=== PATIENT | female | born 1985 | race Caucasian/White ===

== ENCOUNTER 2021-01-25 12:00 | Emergency (ER) | payer MEDICARE, MEDICAID, SELFPAY ==
--- NOTE | ~2021-01-25 | US_ITS ---
EXAMINATION: BILATERAL TRIPLEX SCANNING OF THE LOWER EXTREMITIES CLINICAL INFORMATION: Lower extremity swelling. COMPARISON: None. TECHNIQUE: Color-flow triplex imaging with spectral analysis and compression Doppler were performed on the lower extremities. FINDINGS: Respiratory variation, normal compression and augmented flow are noted throughout the lower extremities. The visualized common femoral vein, superficial femoral vein, profunda femoral vein, popliteal vein and mid calf peroneal and posterior tibial venous segments show no evidence of deep venous thrombosis. There is no Tracy's cyst. US/US venous duplex LE BI IMPRESSION: Normal triplex scan without evidence of deep venous thrombosis involving the lower extremities.
[2021-01-25 12:09] VITALS: BP 125/90; PULSE 104; RESP 18; O2SAT 98; BMI 39.3
--- NOTE | 2021-01-25 13:18 | ED.LOWEXIN ---
HPI - Extremity Injury (Lower) General Chief Complaint: Extremity Injury, Lower Stated Complaint: leg pain Time Seen by Provider: 01/25/21 12:41 Source: patient Mode of arrival: ambulatory Limitations: no limitations History of Present Illness HPI Narrative: 35-year-old healthy female who presents to the emergency department with atraumatic right leg pain. States 2-3 days ago she developed right posterior calf tenderness that seems to be radiating up the leg also admits to some mild numbness tingling again is adamant about no injuries or trauma. Due to concern she felt she needed to be seen. Of note no recent travel Related Data Previous Rx's Medication Instructions Recorded cyclobenzaprine 10 mg PO TID PRN #15 tab 01/25/21 Allergies Allergy/AdvReac Type Severity Reaction Status Date / Time No Known Allergies Allergy Verified 01/25/21 12:09 [No Known Allergies*] Review of Systems Review of Systems: Constitutional : No Weight loss, No Fever, No Chills, No Night Sweats, No Fatigue, No Malaise ENT/Mouth : No Hearing loss, No Ear Pain, No Nasal Congestion, No Sinus Pain, No Hoarseness, No sore throat, No Rhinorrhea, No Swallowing Difficulty Eyes: No Eye Pain, No Swelling, No Redness, No Foreign Body, No Discharge, No Vision Changes Cardiovascular : No Chest Pain, No SOB, No Dyspnea on Exertion, No Orthopnea, No Edema, No Palpitations Respiratory : No Cough, No Sputum, No Wheezing, No Smoke Exposure, No Dyspnea Gastrointestinal : No Nausea, No Vomiting, No Diarrhea, No Constipation, No abdominal Pain, No Hematochezia, No Melena Genitourinary : no irregular bleeding, No Dysuria, No Urinary Frequency, No Hematuria, No Urinary Incontinence, No Urgency, No Flank Pain, No Urinary Flow Changes, No Hesitancy Musculoskeletal : No joint pain, No Myalgias, No Joint Swelling. + leg pain, + leg swelling Skin : No Skin Lesions, No rash Neuro : No Weakness, + Numbness, No Paresthesias, No Loss of Consciousness, No Dizziness, No Headache Psych : No Anxiety/Panic, No Depression, No SI/HI/AH/VH, No Social Issues, Heme/Lymph: No Bruising, No Bleeding,No Lymphadenopathy Endocrine : No Polyuria, No Polydipsia, No Temperature Intolerance [facility] Past Medical History Attestation statement: The following information was validated with the patient. Source: old records reviewed and obtained from family Medical History (Updated 01/25/21 @ 16:29 by AWILDA Champion) Anxiety Asthma Depression Left breast mass Social History Social History Advance Directives: No Advance Directives Information Provided: Yes Patient : No Physical Exam Vital Signs: Vital Signs: Last Vital Signs Temp 97.0 F 01/25/21 14:32 Pulse 100 01/25/21 14:32 Resp 16 01/25/21 14:32 BP 121/79 01/25/21 14:32 Pulse Ox 97 01/25/21 14:32 Body Mass Index 39.3 vital signs have been reviewed as normal and appeared to be correct. Blood pressure normal. Heart rate normal. Respiration rate normal. Temperature normal. Oxygen saturation normal. Appearance: Alert. Oriented X3. No acute distress. Head: Normal external exam. Normocephalic. Atraumatic. No Jackson signs noted. No raccoon eyes noted Eyes: Conjunctiva and sclera normal. ENT: EAC normal. Moist mucous membranes. No drooling noted. No muffled voice noted. Neck: Normal inspection. Neck supple. FROM. No meningeal signs. CVS: Pulses normal throughout. Respiratory: No respiratory distress. Painless inspiration. No accessory muscle usage noted Abdomen: No visible injury noted. Back: Full range of motion noted. Skin: Skin warm and dry. Normal skin color. Extremities: No lower extremity edema. Extremities exhibit normal range of motion. Patient with pain to palpation of posterior calf and posterior thigh. Patient does have objective edema to the right lower extremity compared to the left lower extremity good distal pulses good cap refill. Sensation is intact. Neuro: Oriented X 3. No motor deficit. No sensory deficit. Course Course Course Narrative: Patient's ultrasound without evidence of DVT continues to have symptoms. Given the absence of bilateral nature low suspicion for GBS. The absence of trauma with full range of motion of all joints lower/suspicion for bony abnormalities again do not feel x-rays are warranted. At this time patient is otherwise neurovascularly intact without any motor deficits low suspicion for stroke will discharge home at this time with muscle relaxer and close outpatient follow-up feel this is likely secondary to a peripheral neuropathy. MDM - Extremity Injury (Lower) MDM Narrative Medical decision making narrative: Patient's vital signs are stable and she is afebrile patient presenting to the ED with atraumatic right lower extremity pain swelling numbness concern for DVT does exist will obtain right lower extremity ultrasound looking for evidence of such. Continue to monitor reassess pending the above full range of motion of all joints in the absence of trauma is low risk for fracture will continue to monitor Discharge Plan Discharge Clinical Impression: Acute leg pain Qualifiers: Laterality: right Qualified Code(s): M79.604 - Pain in right leg Patient Disposition: Home, Self-Care Instructions: Paresthesia (ED), Leg Pain (ED) Additional Instructions: You were seen in the ED today for right lower extremity pain numbness tingling and ultrasound was performed without evidence of a blood clot. There was not concern for bony injury at this time your symptoms most concerning for a peripheral neuropathy or paresthesia that should improve over time on its own. You will be prescribed a muscle relaxer to help with potential inflammation. Continue to use Motrin Tylenol home return if symptoms worsen follow-up with your doctor. Prescriptions: New cyclobenzaprine 10 mg tablet 10 mg PO TID PRN (Reason: muscle spasm) Qty: 15 RF: 0 Interventions: ED Discharge Assessment Last Done: 01/25/21 16:37 Discharge Date/Time: 01/25/21 16:38 Print Language: Albanian
[2021-01-25 14:32] VITALS: BP 121/79; PULSE 100; RESP 16; TEMP 36.1; O2SAT 97
== END 2021-01-25 16:38 | disposition home or self-care (01) ==
PROVIDERS: Emergency Provider Emergency Medicine Emergency Medical Services; PCP Internal Medicine
DX: M79.604 Pain in right leg (principal); R60.0 Localized edema; R20.0 Anesthesia of skin
CPT/HCPCS: 93970; 99284

== ENCOUNTER 2025-06-10 12:33 | Outpatient (REF) | payer OTHER, SELFPAY ==
--- NOTE | 2025-06-10 | ECG_ITS ---
Test Reason : CHECK QTC Blood Pressure : */* mmHG Vent. Rate : 77 BPM Atrial Rate : 77 BPM P-R Int : 112 ms QRS Dur : 82 ms QT Int : 380 ms P-R-T Axes : 48 55 37 degrees QTcB Int : 430 ms Normal sinus rhythm Normal ECG When compared with ECG of 18-Oct-2017 12:49, No significant change was found Referred By: Livia Rodríguez Electronically Signed By: NEVA MARQUES
[2025-06-10 12:55] LABS: MANUAL DIFF FLAG NO
[2025-06-10 14:03] LABS: Hematocrit 41.9 % (37.0-47.0); Hemoglobin 13.9 g/dl (12.0-16.0); Imm Gran Abs Auto 0.01 X10*3/uL (0.00-0.03); Imm Gran Pct Auto 0.2 % (0.0-0.4); Lymphocytes Absolute Auto 1.4 X10*3/uL (1.2-4.9); Mean Corpuscular HGB Conc 33.2 g/dl (31.0-35.0); Mean Corpuscular Hemoglobin 30.2 pg (27.0-33.0); Mean Corpuscular Volume 91.1 fL (80.0-98.0); NRBC Abs Auto 0.000 X10*3/uL (0.0-0.012); NRBC Pct Auto 0.0 /100WBC (0.0-0.2); Platelet Count 243 X10*3/uL (160-400); Red Blood Count 4.60 X10*6/uL (4.20-5.50); White Blood Count 5.2 X10*3/uL (4.8-10.8)
[2025-06-10 14:40] LABS: Erythrocyte Sedimentation Rate 8 MM/HR (0-20)
[2025-06-10 17:39] LABS: Parathyroid Hormone Intact 89.3 pg/mL (8.7-77.1)
[2025-06-10 18:50] LABS: Alanine Aminotransferase 30 U/L (0-31); Albumin Level 4.3 g/dL (3.5-5.0); Alkaline Phosphatase 90 U/L (39-117); Anion Gap 11 (12-20); Aspartate Amino Transferase 23 U/L (5-31); Blood Urea Nitrogen 12 mg/dL (9-16); Calcium 9.4 mg/dL (8.4-10.2); Carbon Dioxide 25 mmol/L (22-29); Chloride 107 mmol/L (96-108); Estimated Glomerular Filt Rate > 60; Iron 91 mcg/dL (30-160); Percent Iron Saturation 31 % (15-50); Potassium 4.0 mmol/L (3.3-5.1); Sodium 139 mmol/L (135-145); Total Iron Binding Capacity 295 mcg/dL (228-428); Total Protein 6.9 g/dL (6.5-8.0); Unsaturated Iron Binding 204 ug/dL
[2025-06-10 18:51] LABS: Free T4 (Free Thyroxine) 0.87 ng/dL (0.71-1.85); Thyroid Stimulating Hormone 1.21 uIU/mL (0.32-4.0)
[2025-06-11 00:31] LABS: Folate 9.6 ng/mL (> or = 4.0); Vitamin B12 1741 pg/mL (200-900)
[2025-06-11 08:20] LABS: HBS Num1 26.74 mIU/mL (0-7.99); HBc Num1 0.06 S/CO (0.00-0.79); HBsAGNum1 0.37 S/CO (0.00-0.99); Hepatitis B Surface Antigen Negative (Negative); ~HepC Num1 0.08 S/CO (0.00-0.79); ~Hepatitis B Surface Antibody REACTIVE (Nonreactive); ~Hepatitis C Antibody Nonreactive (Nonreactive)
== END 2025-06-10 12:34 | disposition home or self-care (01) ==
LOC: HO.LAB 12:33
PROVIDERS: PCP Internal Medicine; Visit Provider Psychiatry & Neurology Psychiatry
DX: Z13.6 Encounter for screening for cardiovascular disorders (principal); Z13.1 Encounter for screening for diabetes mellitus; Z11.59 Encounter for screening for other viral diseases; F39 Unspecified mood [affective] disorder; K76.89 Other specified diseases of liver; R41.89 Other symptoms and signs involving cognitive functions and awareness
CPT/HCPCS: 80053; 82607; 82746; 83036; 83540; 83970; 84100; 84439; 84443; 85025; 85652; 86803; 87086; 93005

== ENCOUNTER → 2025-06-10 13:10 | Outpatient (BNV) | payer OTHER, SELFPAY | PROVIDERS: PCP Internal Medicine; Visit Provider Internal Medicine | DX: Z13.6 Encounter for screening for cardiovascular disorders (principal) | CPT/HCPCS: 93010 ==

== ENCOUNTER 2025-07-01 09:15 | Outpatient (RCR) | payer OTHER, SELFPAY ==
[2025-06-09 09:34] VITALS: BMI 37.4
[2025-06-09 09:35] VITALS: BP 96/65; PULSE 100; TEMP 36.4
--- NOTE | 2025-06-09 15:21 | HO.PHP ---
Macrina's case was opened during weekly team treatment meeting.
--- NOTE | 2025-06-09 15:27 | PC.ADMIT ---
Patient is a 40 year old single female who was referred to [facility] by her therapist secondary to worsening depression for the past month. Patient unable to identify a precipitant however stated she's experiencing, a little stress with my son as he does not know what he is going to do with his life either go to school or get a job. Patient has a history of attending [facility] in the past. Patient also struggling with dissociation and isolation, along with self harm by cutting superficially her legs, last self harmed two days ago. Patient denied the areas needing stitches. Asked what patient could do instead of self harm when feeling strong emotions and patient stated use ice or distraction. Patient reports she is unemployed and reports having no day structure. Patient is alert and oriented x4. She is calm and cooperative. She presented with depressed mood and blunted affect. When asked if patient was experiencing SI patient stated, It's pretty bad. Just feels almost constant. I know what I would do but I wouldn't plan on doing it . Patient denied intent to kill herself. Patient stated she is at [facility] to learn better coping skills to help with her thoughts. Patient reports her protective factor is her 19 year old son who lives with her. Patient was given a copy of her safety plan if needed. Patient denied any history of using any substance. Medications updated with patient and patient's pharmacy. She reports taking medications as prescribed.
--- NOTE | 2025-06-10 15:48 | P.HPPSP_ITS ---
[facility] Date of Service: 06/09/25 Chief Complaint: PTSD Sources of Information: patient interviewed, chart reviewed and crisis/core team assessment reviewed Additional Sources of Information: [facility] Narrative: As per Initial Assessment: Macrina is a 40 year old, female, referred to [facility] by her therapist Betsy Nichole due to increasing symptoms of depression in the past month, states she is ?Not sure why.? Reports ? constant suicidal thoughts,? and reports she has also started cutting again, using scissors on legs and stomach, denies cutting deeply , does not require stitches, reports her therapist is aware. When asked how often pt stated ?it? s random?. Macrina was quiet during the intake, requiring continuous prompting with questions to gather info, difficult recollecting information, slow to respond /process. Macrina reports depression symptoms of dissociating, difficulty remembering, isolating more, inconsistent sleep from 3 to 15 hours of sleep a day, difficulty falling asleep and waking very early some days eg . 4am, low mood, sad, crying several days a week, low energy, poor concentration, on her phone a lot more, using it to avoid/ escape, feeling hopeless, low self-worth, fatigue. Pt also reports increased anxiety and an OCD diagnosis, for checking locks and knobs , ?paranoid? fears that her apartment will be broken into. (No history of break- ins). Pt also reports Panic attacks a few times a week, reports this has been a long time struggle, began around age 13 with recent increase in occurrence the past month. Macrina reports suicidal thoughts daily, states they occur randomly and ranging from thoughts such as I hope I don't wake up to thoughts with a plan to overdose on medications or to go to the train tracks. Pt denies intent. Stated she does not want to act on the thoughts, which is why she has come to [facility]. Denies feeling an increase in SI today, identified passive SI today, currently no plan and no intent during intake but states the plan ?pops into my mind randomly?. Pt agreed to report to staff or contact crisis if her SI increases. During intake, ot and senior underwriter identified some coping tools that can help with SI and SIB when not at [facility]. Patient seen today. Overall poor historian and appears sleepy, flat, slowed, and needing redirection to attend to conversation. Reviews psychiatric history and ongoing issues with chronic depression and severe PTSD. For the past month is has gotten worse . Reports cognitive decline, fatigue, poor focus, no energy or motivation, feels detached...it's hard to think . Isolating at home. SI that comes and goes but has been more persistent and occurring almost everyday for the past month. Some days I hope I dont wake up, I'm not quite there today, but generally feel like that . No concrete plans or intention to take action or harm herself. Denies AI or HI. Denies AH or VH. Denies any alcohol or drug use. Lives at home in apartment with 19 yo son, [facility] housing. Established outpatient care at [facility]. Limited primary supports in the community but says she has a good family and a sister she can rely on. Current medications? Clomipramine 200 mg qhs Prazosinbut Ambien 10 mg qhs? Lorazepam 1.5 mg qhs IPLOC:? x 6 PHP in the past Respite in 2023 SA in the past, last time was 2016 by overdose DBT in past was helpful Developmental hx: Youngest of 6 children, denies any known developmental delays, but describes long standing issues consistent with attention-deficit disorder stemming from childhood. No prior diagnosis of ADHD or LD but did poorly academically in school, particularly struggled in MS and HS. Her son carries diagnosis of ADHD from childhood. Psychiatrist: Chel Montilla at [facility] Therapist: Betsy Nichole at [facility] PCP: Nicole Kent at [facility] worker Previous trials: unable to recall but recognized possible trials of Prozac, ZOloft, Celexa, Wellbutrin, Klonopin, Lamictal, gabapentin, Abilify, Seroquel, Proazosin, Ativan, trazodone ECT (not helpful), TMS 2 rounds, somewhat helpful a few yrs ago) and Esketamine treatment (in 2023, somewhat helpful) in the past FH: Father with alcoholism, son with ADHD, bio brother with anxiety, depression, alcoholism [facility] Medical History (Updated 08/08/25 @ 02:59 by Livia Rodríguez MD) Constipation GERD (gastroesophageal reflux disease) Fatty liver Concussion Left breast mass Asthma Anxiety Depression Narrative: pre-eclampsia in Denies seizures Concussion x1 early 20s, intoxicated 2005 LMP: 2 weeks ago Ht: 5'2 Wt: 200 lbs ALL: NKDA Diagnostics Vital Signs (24Hr): BMI result Body Mass Index 37.4 Meds/Allergies Meds Home Medications ?Medication ?Instructions ?Recorded ?Confirmed ?Type acetylcysteine 600 mg capsule 600 mg PO BID 06/09/25 1 08/10/24 History albuterol sulfate 90 mcg/actuation 2 puff inhalation Q 6H PRN wheezing 06/09/25 06/09/25 History aerosol inhaler (Ventolin HFA) cholecalciferol (vitamin D3) 125 125 mcg PO QAM 06/09/25 History mcg (5,000 unit) tablet (Vitamin D3) clomipramine 50 mg capsule 200 mg PO BEDTIME 06/09/25 06/09/25 History fluticasone propionate 110 1 puff inhalation BID 06/0906/09/25 History mcg/actuation HFA aerosol inhaler omeprazole 20 mg capsule,delayed 20 mg PO QAM 06/09/25 06/09/25 History release polyethylene glycol 3350 17 17 g PO ONCE PRN constipat ion 06/09/25 06/09/25 History gram/dose oral powder (Gavilax) prazosin 5 mg capsule 10 mg PO BEDTIME 06/09/25 History zolpidem 10 mg tablet 10 mg PO BEDTIME 06/09/25 History Allergies Allergies Allergy/AdvReac Type Severity Reaction Status Date / Time No Known Allergies (No Known Allergy Verified 01/25/21 12:09 Allergies*) Mental Status Exam Mental Status Exam Patient Appearance: Disheveled Patient Orientation: Person, Place and Situation Level of Consciousness: Awake and Lethargic Patient Behavior: Guarded, Passive and Poor Eye Contact Mood Description: Depressed Affect Description: Flat Patient Cognition Impaired: Yes Ability to Follow Directions: Fair Speech Pattern: Impoverished, Soft-Spoken and Delayed Memory Description: Remote Impaired and Recent Impaired Hallucinations: None Delusions: Not Present Perceptual Disturbances: Depersonalization Thought Process: Distracted Thought Content: positive for Poverty of Content, positive for Slowed Thinking and positive for Suicidal Ideation (passive without plan or ideation) Judgement: Fair Assessment & Plan Assessment & Plan (1) MDD (major depressive disorder), recurrent severe, without psychosis: Status: Acute Code(s): F33.2 - Major depressive disorder, recurrent severe without psychotic features (2) ADD (attention deficit disorder) without hyperactivity: Status: Acute Code(s): F98.8 - Other specified behavioral and emotional disorders with onset usually occurring in childhood and adolescence (3) PTSD (post-traumatic stress disorder): Status: Acute Code(s): F43.10 - Post-traumatic stress disorder, unspecified (4) OCD (obsessive compulsive disorder): Status: Acute Code(s): F42.9 - Obsessive-compulsive disorder, unspecified Plan Admit to [facility] VS reviewed on admission start lithium 150 mg qd-BID for TRD/chronic SI (will only given short rx at a time) start NAC 600 mg qd for OCD continue regular medications for now Routine lab work as indicated EKG, routine for baseline QTc for medication considerations as indicated UDS as indicated [facility] reviewed Review safety plan Continue to monitor as per protocol Patient educated on: diagnosis, medication risk/benefits, TMS and medical condition Informed Consent: understands Reason for continued partial hosp. stay Substantial Risk for: inability to function and med/psych decompensation Certification I certify that partial hospital treatment is medically necessary due to the symptoms and problems resulting from the patient's mental illness and the failure to treat the patient at the partial hospital level of care would likely result in the patient requiring inpatient psychiatric care which could not be prevented at a less intensive level of care. Time Spent With Patient Time: Total time managing care of this patient today _90___ minutes.
--- NOTE | 2025-06-15 18:53 | P.PNPSP_ITS ---
Subjective Subjective Date of Service: 06/13/25 Reason For Visit: PTSD Interim History: Patient seen for follow up No significant change in presentation - still depressed, flat, despondent. Poor attention, fatigue, slow cogitive tempo. TRD w possible neurovegetative sx superimposed on presumed ADD and possible character pathology She is tolerating lithium without issue. Onogin passive SI without intention or plan. Denies HI, AH, VH. Sleeping but feels unrested, no energy. Lab results reviewed Stimulant requiring a PA Mental Status Exam Mental Status Exam Patient Appearance: Disheveled Patient Orientation: Person, Place and Situation Level of Consciousness: Awake and Lethargic Patient Behavior: Guarded, Passive and Poor Eye Contact Mood Description: Depressed Affect Description: Flat Patient Cognition Impaired: Yes Ability to Follow Directions: Fair Speech Pattern: Impoverished, Soft-Spoken and Delayed Memory Description: Remote Impaired and Recent Impaired Diagnostics Vital Signs (24Hr): BMI result Body Mass Index 37.4 Assessment & Plan Assessment & Plan (1) MDD (major depressive disorder), recurrent severe, without psychosis: Status: Acute Code(s): F33.2 - Major depressive disorder, recurrent severe without psychotic features (2) ADD (attention deficit disorder) without hyperactivity: Status: Acute Code(s): F98.8 - Other specified behavioral and emotional disorders with onset usually occurring in childhood and adolescence (3) PTSD (post-traumatic stress disorder): Status: Acute Code(s): F43.10 - Post-traumatic stress disorder, unspecified (4) OCD (obsessive compulsive disorder): Status: Acute Code(s): F42.9 - Obsessive-compulsive disorder, unspecified Plan continue PHP continue lithium 150 mg BID for TRD/chronic SI (will only given short rx at a time) continue NAC 600 mg qd for OCD continue clomipramine 200 mg qhs continue prazosin 10 mg qhs continue Ambien 10 mg qhs prn Routine lab work reviewed VS reviewed on admission Review safety plan Discussed TMS, patient says she will consider but not motivated twd this trtmt Continue to monitor Patient educated on: diagnosis and medication risk/benefits Informed Consent: understands Reason for contiued partial hosp. stay Substantial Risk for: inability to function and med/psych decompensation Certification I certify that partial hospital treatment is medically necessary due to the symptoms and problems resulting from the patient's mental illness and the failure to treat the patient at the partial hospital level of care would likely result in the patient requiring inpatient psychiatric care which could not be prevented at a less intensive level of care. Total time managing care of this patient today _30___ minutes. Discharge Plan Discharge Attending provider: Livia Rodríguez Medications: Continued zolpidem 10 mg tablet 10 mg PO BEDTIME prazosin 5 mg capsule 10 mg PO BEDTIME Rx Instructions: Take 2 capsule by mouth at bedtime (10 mg) omeprazole 20 mg capsule,delayed release(DR/EC) 20 mg PO QAM clomipramine 50 mg capsule 200 mg PO BEDTIME Rx Instructions: TAKE 4 CAPSULE BY MOUTH AT BEDTIME polyethylene glycol 3350 [Gavilax] 17 gram/dose powder 17 g PO ONCE PRN (Reason: constipation) albuterol sulfate [Ventolin HFA] 90 mcg/actuation HFA aerosol inhaler 2 puff INHALATION Q6H PRN (Reason: wheezing) fluticasone propionate 110 mcg/actuation HFA aerosol inhaler 1 puff INHALATION BID acetylcysteine 600 mg capsule 600 mg PO BID Rx Instructions: TAKE 1 CAPSULE BY MOUTH TWICE A DAY WITH MEALS cholecalciferol (vitamin D3) [Vitamin D3] 125 mcg (5,000 unit) tablet 125 mcg PO QAM lithium carbonate 150 mg capsule 150 mg PO BID Qty: 30 0RF Changed lorazepam [Ativan] 1 mg tablet 1.5 mg PO BEDTIME PRN (Reason: Sleep) Qty: 10 0RF Patient Comments: Today's date 06/09/25. Patient stated she has been out of this medication for a week and does not know why it was not refilled. Rx Instructions: Last filled 04/08/25 # 45 tabs. aripiprazole 5 mg tablet 7.5 mg PO BEDTIME Qty: 45 0RF aripiprazole 2 mg tablet 2 mg PO DAILY Qty: 30 0RF Patient Education: Depression (DC), Anxiety (ED) Print Language: Japanese
--- NOTE | 2025-06-27 23:22 | HO.PHPPROGNO ---
Subjective Subjective Date of Service: 06/24/25 Reason For Visit: PTSD Interim History: Patient seen for follow-up. Since last seen on 06/13Patient delayed picking up medications from pharmacy. Just restarted back on lithium 2 days ago and is now 3 days on ABilify 3 mg. Less hypersomnia. She feels she is sleeping better, less hours but better quality. SI a little less . No intention o rplan. Feels there has been some gradual improvements in mood. Still presents with poor memory and attention, but less flat, moments of brightening but overall still quite blunted. 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 I suggest she could use GoodRx to trial (about $14 for month) and if tolerated/beneficial may have better luck getting approval through insurance. Medication Compliance: Intermittent Side effects from medications: No Attending Groups: Yes Review of Systems Acute medical concerns: No Mental Status Exam Mental Status Exam Narrative: Calm, more cooperative, fatigue but alert. Mood depressed, affect blunted. Speech normal. No evidence of thought disorder. Thought content relevant to stressors, transient hopelessness, vague passive SI abating. Denies perceptual disturbance and does not appear to be internally preoccupied. Insight/judgment fair but adequate. Diagnostics Vital Signs (24Hr): BMI result Body Mass Index 37.4 Assessment & Plan Assessment & Plan (1) MDD (major depressive disorder), recurrent severe, without psychosis: Status: Acute Code(s): F33.2 - Major depressive disorder, recurrent severe without psychotic features (2) ADD (attention deficit disorder) without hyperactivity: Status: Acute Code(s): F98.8 - Other specified behavioral and emotional disorders with onset usually occurring in childhood and adolescence (3) PTSD (post-traumatic stress disorder): Status: Acute Code(s): F43.10 - Post-traumatic stress disorder, unspecified (4) OCD (obsessive compulsive disorder): Status: Acute Code(s): F42.9 - Obsessive-compulsive disorder, unspecified Plan extend PHP titrate ABilify to 5 mg, if tolerated may consider increase to 7.5 mg qhs pending start on [facility] 5 mg qam continue lithium 150 mg BID for TRD/chronic SI continue clomipramine 200 mg qhs continue prazosin 10 mg qhs continue Ambien 10 mg qhs prn continue NAC 600 mg qd for OCD Routine lab work reviewed VS reviewed on admission Review safety plan Continue to monitor Patient educated on: diagnosis and medication risk/benefits Informed Consent: understands Reason for contiued partial hosp. stay Substantial Risk for: med/psych decompensation Certification I certify that partial hospital treatment is medically necessary due to the symptoms and problems resulting from the patient's mental illness and the failure to treat the patient at the partial hospital level of care would likely result in the patient requiring inpatient psychiatric care which could not be prevented at a less intensive level of care. Total time managing care of this patient today __30__ minutes. Discharge Plan Discharge Attending provider: Livia Rodríguez Medications: Continued zolpidem 10 mg tablet 10 mg PO BEDTIME prazosin 5 mg capsule 10 mg PO BEDTIME Rx Instructions: Take 2 capsule by mouth at bedtime (10 mg) omeprazole 20 mg capsule,delayed release(DR/EC) 20 mg PO QAM clomipramine 50 mg capsule 200 mg PO BEDTIME Rx Instructions: TAKE 4 CAPSULE BY MOUTH AT BEDTIME polyethylene glycol 3350 [Gavilax] 17 gram/dose powder 17 g PO ONCE PRN (Reason: constipation) albuterol sulfate [Ventolin HFA] 90 mcg/actuation HFA aerosol inhaler 2 puff INHALATION Q6H PRN (Reason: wheezing) fluticasone propionate 110 mcg/actuation HFA aerosol inhaler 1 puff INHALATION BID acetylcysteine 600 mg capsule 600 mg PO BID Rx Instructions: TAKE 1 CAPSULE BY MOUTH TWICE A DAY WITH MEALS cholecalciferol (vitamin D3) [Vitamin D3] 125 mcg (5,000 unit) tablet 125 mcg PO QAM lithium carbonate 150 mg capsule 150 mg PO BID Qty: 30 0RF Changed lorazepam [Ativan] 1 mg tablet 1.5 mg PO BEDTIME PRN (Reason: Sleep) Qty: 10 0RF Patient Comments: Today's date 06/09/25. Patient stated she has been out of this medication for a week and does not know why it was not refilled. Rx Instructions: Last filled 04/08/25 # 45 tabs. aripiprazole 5 mg tablet 7.5 mg PO BEDTIME Qty: 45 0RF aripiprazole 2 mg tablet 2 mg PO DAILY Qty: 30 0RF Patient Education: Depression (DC), Anxiety (ED) Print Language: Cameroonian
--- NOTE | 2025-07-01 19:58 | HO.PHPPROGNO ---
Subjective Subjective Date of Service: 07/01/25 Reason For Visit: PTSD Interim History: Patient seen for follow-up, anticipating discharge at the end of program today.? Doing OKay. I do feel a little better SI imrppoved from a 9/10 in severity to 5/10. Last SI thougtht yesterday in passing . Reports no acute issues or concerns. Medication compliant, medications well-tolerated. Denies any adverse effects.?Lab slip given to check labs including [place] level, creatinine, TSH. Mood is stable.?Transient passive SI, denies any thoughts today. Denies thoughts of harming self or others at this time. Denies any aggressive ideation or HI. Denies any paranoia or AH or VH. Sleep, appetite, energy improved. Medication Compliance: Yes Side effects from medications: No Attending Groups: Yes Review of Systems Acute medical concerns: No Mental Status Exam Mental Status Exam Narrative: Alert, oriented, in no acute distress. Calm, cooperative. Mood less depressed, stable, affect appropriate. Speech normal. Thought process linear, coherent, more goal-directed. Thought content related to stressors, future-oriented, denies any helplessness, hopelessness or SI.? No aggressive ideation or HI. No paranoia or delusional content elicited. No evidence of psychosis. Insight and judgment fair-good. Diagnostics Vital Signs (24Hr): BMI result Body Mass Index 37.4 Assessment & Plan Assessment & Plan (1) MDD (major depressive disorder), recurrent severe, without psychosis: Status: Acute Code(s): F33.2 - Major depressive disorder, recurrent severe without psychotic features (2) ADD (attention deficit disorder) without hyperactivity: Status: Acute Code(s): F98.8 - Other specified behavioral and emotional disorders with onset usually occurring in childhood and adolescence (3) PTSD (post-traumatic stress disorder): Status: Acute Code(s): F43.10 - Post-traumatic stress disorder, unspecified (4) OCD (obsessive compulsive disorder): Status: Acute Code(s): F42.9 - Obsessive-compulsive disorder, unspecified Plan [facility]charge from [facility] continue ABilify 7.5 mg qhs, may take additional 2 mg qd prn in afternoon for agitation/intrusive thoughts discont methylphenidate, patient did not start continue lithium 150 mg BID for TRD/chronic SI (Li level 0.22 today) continue clomipramine 200 mg qhs continue prazosin 10 mg qhs continue Ambien 10 mg qhs prn continue NAC 600 mg qd for OCD Refills sent to pharmacy Will defer further medication management to outpatient provider *Safety plan reviewed *Discharge diagnoses, treatment course, discharge plan have been reviewed with patient (including medication regime, medication management, potential side effects) as well as treatment rationale were also revisited *Discharge paperwork signed and given to patient, copy sent for scanning to chart Patient educated on: diagnosis and medication risk/benefits Informed Consent: understands Reason for contiued partial hosp. stay Substantial Risk for: stable for discharge Certification I certify that partial hospital treatment is medically necessary due to the symptoms and problems resulting from the patient's mental illness and the failure to treat the patient at the partial hospital level of care would likely result in the patient requiring inpatient psychiatric care which could not be prevented at a less intensive level of care. Total time managing care of this patient today ___40_ minutes. Discharge Plan Discharge Attending provider: Livia Rodríguez Medications: Continued zolpidem 10 mg tablet 10 mg PO BEDTIME prazosin 5 mg capsule 10 mg PO BEDTIME Rx Instructions: Take 2 capsule by mouth at bedtime (10 mg) omeprazole 20 mg capsule,delayed release(DR/EC) 20 mg PO QAM clomipramine 50 mg capsule 200 mg PO BEDTIME Rx Instructions: TAKE 4 CAPSULE BY MOUTH AT BEDTIME polyethylene glycol 3350 [Gavilax] 17 gram/dose powder 17 g PO ONCE PRN (Reason: constipation) albuterol sulfate [Ventolin HFA] 90 mcg/actuation HFA aerosol inhaler 2 puff INHALATION Q6H PRN (Reason: wheezing) fluticasone propionate 110 mcg/actuation HFA aerosol inhaler 1 puff INHALATION BID acetylcysteine 600 mg capsule 600 mg PO BID Rx Instructions: TAKE 1 CAPSULE BY MOUTH TWICE A DAY WITH MEALS cholecalciferol (vitamin D3) [Vitamin D3] 125 mcg (5,000 unit) tablet 125 mcg PO QAM lithium carbonate 150 mg capsule 150 mg PO BID Qty: 30 0RF Changed lorazepam [Ativan] 1 mg tablet 1.5 mg PO BEDTIME PRN (Reason: Sleep) Qty: 10 0RF Patient Comments: Today's date 06/09/25. Patient stated she has been out of this medication for a week and does not know why it was not refilled. Rx Instructions: Last filled 04/08/25 # 45 tabs. aripiprazole 5 mg tablet 7.5 mg PO BEDTIME Qty: 45 0RF aripiprazole 2 mg tablet 2 mg PO DAILY Qty: 30 0RF Patient Education: Depression (DC), Anxiety (ED) Print Language: Hebrew
== END 2025-07-01 23:59 | disposition home or self-care (01) ==
LOC: HO.PHPA 09:15
PROVIDERS: Visit Provider Psychiatry & Neurology Psychiatry
DX: F33.2 Major depressive disorder, recurrent severe without psychotic features (principal); F98.8 Other specified behavioral and emotional disorders with onset usually occurring in childhood and adolescence; F43.10 Post-traumatic stress disorder, unspecified; F42.9 Obsessive-compulsive disorder, unspecified; Z91.51 Personal history of suicidal behavior; Z79.899 Other long term (current) drug therapy
CPT/HCPCS: 90791; 90853

== ENCOUNTER → 2025-07-01 09:15 | Outpatient (BNV) | payer OTHER, SELFPAY | PROVIDERS: Visit Provider Psychiatry & Neurology Psychiatry | DX: F33.2 Major depressive disorder, recurrent severe without psychotic features (principal); F98.8 Other specified behavioral and emotional disorders with onset usually occurring in childhood and adolescence; F43.10 Post-traumatic stress disorder, unspecified; F42.9 Obsessive-compulsive disorder, unspecified | CPT/HCPCS: 90792; 99214 ==

== ENCOUNTER 2025-07-01 12:17 | Outpatient (REF) | payer OTHER, SELFPAY ==
--- OUTSIDE RECORDS SUMMARY | 2025-07-01 12:21 | XMS_ITS | Clinical Summary ---
Author Organization [address] Address [address] [place] [phone] Phone Care Team Providers Care Head Buyer Tobacco Name Role Phone Nicole Kent MD Primary Care Provider [phone] Allergies No known active allergies Medications vit B complex no.12/niacin,B3 , (VITAMIN B COMPLEX NO.12-NIACIN ORAL) Take 1,000 mcg by mouth daily. Active gabapentin (NEURONTIN) 300 mg capsule Take 300 mg by mouth 3 times daily. Active y-zvrgui-xlnggx ne (NAC) 600 mg capsule TAKE 2 CAPSULES BY MOUTH TWICE A DAY 09/28/2020 Active modafiniL (PROVIGIL) 100 mg tablet TAKE 2 TABLET BY MOUTH EVERY MORNING WITH FOOD 05/31/2024 Active zolpidem (AMBIEN) 10 mg tablet Take 1 tablet (10 mg total) by mouth at bedtime. 07/27/2024 Active clomiPRAMINE (ANAFRANIL) 50 mg capsule TAKE 4 CAPSULE BY MOUTH AT BEDTIME (TOTAL DOSE 200 MG) 08/03/2024 Active prazosin (MINIPRESS) 5 mg capsule TAKE 2 CAPSULE BY MOUTH AT BEDTIME (10 MG) 06/22/2024 Active LORazepam (ATIVAN) 1 mg tablet Take 1.5 tablets (1.5 mg total) by mouth at bedtime. 06/25/2024 Active clomiPRAMINE (ANAFRANIL) 25 mg capsule 12/20/2024 Active Vitamin D3 125 mcg (5,000 unit) tablet Take 1 tablet (5,000 Units total) by mouth 1 (one) time each day in the morning. 11/26/2024 Active fluticasone HFA (FLOVENT HFA) 110 mcg/actuation inhaler INHALE 1 PUFF BY MOUTH 2 (TWO) TIMES A DAY 12 g 5 02/22/2025 Active omeprazole (PriLOSEC) [address] capsule TAKE 1 CAPSULE (20 MG TOTAL) BY MOUTH 1 (ONE) TIME EACH DAY BEFORE BREAKFAST. 90 capsule 1 05/03/2025 Active polyethylene glycol (Gavilax) 17 gram/dose oral powder Take 17 g by mouth 1 (one) time each day if needed for constipation. 510 g 1 05/10/2025 Active Ventolin HFA 90 mcg/actuation inhaler Inhale 2 puffs by mouth every 6 (six) hours if needed for wheezing. 18 g 05/10/2025 Active Active Problems Problem Noted Date Diagnosed Date Family history of colon cancer in father 025 Constipation 05/17/2025 Vitamin D deficiency 01/04/2022 Snoring 03/15/2019 Overview (06/07/2024): 03/05/2019 Diagnostic polysomnogram did not reveal SMITH. 'Trivial' nocturnal hypoxia mentioned. Does not appear to meet dx criteria for supplemental oxygen. Fatty liver 12/11/2018 Obsessive-compulsive disorder 09/10/2018 PTSD (post-traumatic stress disorder) 09/10/2018 Morbid obesity with BMI of 40.0-44.9, adult 11/04 Suicidal intent 01/16/2016 Overview (06/07/2024): Overdose of celexa and naproxen, admitted to inpatient Psych January 2016 Anxiety 11/16/2015 Depression 11/16/2015 Migraines 06/13/2010 Asthma 12/29/2008 Encounters Date Type Department Care Team Description 05/17/2025 9:40 AM EST Consult Gastroenterology - [address] [facility] [address] [place] [address] Quincy Bales MD Constipation, unspecified constipation type (Primary Dx); Family history of colon cancer in father 05/17/2025 Telephone Gastroenterology - [place] [address] [facility] [address] [place] [address] Quincy Bales MD from Last 3 Months Immunizations Immunization Administration Dates Next Due HPV, Quadrivalent 08/31/2010,04/30/2010,02/29/20 10 Influenza trivalent, 0.5mL, preservative free (Fluarix; FluLaval; Fluzone) ages 6mo and older (Afluria) 3 years and older 09/04/2016 MMR, measles mumps and rubel la Live (Priorix; M-M-R II) 12mo and older 08/30/2020,07/26/2020 Pneumococcal conjugate 13 va lent (Prevnar 13, PCV13) 2mo and older 09/04/2016 Td Tetanus diptheria (Tdvax) 7yo and older 07/19 Tdap Tetanus diptheria acell ular pertussis (Boostrix; Adacel) 7yo and older 12/29/2008 Surgical History Surgery Date Site/Laterality Comments OTHER SURGICAL HISTORY 01/04/2010 - 02/03/2010 Right right thigh lump fatty tumor OTHER SURGICAL HISTORY 04/06/2010 Right removal of right breast lump Medical History Medical History Date Comments Asthma 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 9 with comorbidity) ([facility] V24, [facility] V28) 11/20/2017 Family History Medical History Relation Name Comments Breast cancer Aunt maternal ?age at DX; un ilateral Mental illness Brother x 1 drug abuse Colon cancer Father HTN, HLD Alzheimer's disease Maternal Grandfather Diabetes Maternal Grandmother Breast cancer Mother unilateral; mu ltiple MIs (starting at 40); HTN, HLD, anxiety Asthma Sister x 2 HLD Relation Name Status Comments Aunt maternal Alive Brother x 1 Alive Father Maternal Grandfather Maternal Grandmother Mother Alive Paternal Grandfather Paternal Grandmother Sister x 2 Alive Social History Tobacco Use Types Packs/Day Years Used Date Smoking Tobacco: Never Smokeless Tobacco: Never Tobacco Cessation:Counseling Given: Not Answered Alcohol Use Standard Drinks/Week Comments Yes 0 (1 standard drink = 0.6 oz pur e alcohol) holidaysonly Housing Instability Answer Date Recorde d Are you worried that in the next 2 months you may not have stable housing? No 08/10/2024 Food Access & Nutrition Answer Date Rec orded Do you have access to a vari ety of food including fruits and vegetables? Yes 08/10/2024 Access to Healthcare Answer Date Record ed Within the last 3 months, ho w many times did you visit the emergency department for your medical care? 0 08/10/2024 Health Literacy Answer Date Recorded How often do you need to hav e someone help you when you read instructions, pamphlets, or other written material from your doctor or pharmacy? Never 08/10/2024 Caregiver: How often do you need to have someone help you when you read instructions, pamphlets, or other written material from your doctor or pharmacy? Not on file 08/10/2024 Financial Risk Answer Date Recorded How hard is it for you to pa y for the very basics like food, housing, medical care, and air conditioning / heating? Not very hard 08/10/2024 Transportation Answer Date Recorded Has the lack of transportati on kept you from meetings, work, or from getting things needed for daily living? No Has the lack of transportati on kept you from medical appointments or from getting medications? No 08/10/2024 Social Isolation Answer Date Recorded How often do you feel lonely or isolated from those around you? Sometimes 08/10/2024 Food Risk Answer Date Recorded Within the past 12 months we worried whether our food would run out before we got money to buy more. Never true 08/10/2024 Within the past 12 months th e food we bought just didn't last and we didn't have money to get more. Never true 08/10/2024 Dependent Care Answer Date Recorded Do you need help finding or paying for care for your loved ones. For example, child & adolescent psychiatrist or elderly care for an older adult? No 08/10/2024 Education Answer Date Recorded Do you think completing more education or training, like finishing a GED, going to college, or learning a trade, would be helpful for you? Yes 08/10/2024 Employment and Income Answer Date Recor ded During the last four weeks, have you been actively looking for work? Yes 08/10/2024 Living Situation Answer Date Recorded What is your living situation? Unrecognized valu e 08/10/2024 Education Answer Date Recorded What is the highest level of school you have completed or the highest degree you have received? 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 Not on file Not on file Not on file Last Filed Vital Signs Vital Sign Reading Time Taken Comments Blood Pressure 108/80 05/17/2025 9:23 AM EST Pulse 76 05/17/2025 9:23 AM EST Temperature 35.9 C (96.7 F) 02/09/2025 12:58 PM EDT Respiratory Rate 16 02/09/2025 12:58 PM EDT Oxygen Saturation 98% 02/09/2025 12:58 PM EDT Inhaled Oxygen Concentration - - Weight 89.8 kg (198 lb) 05/17/2025 9:23 AM EST Height 157.5 cm (5' 2 ) 05/17/2025 9:23 AM EST Body Mass Index 36.21 05/17/2025 9:23 AM EST Plan of Treatment Upcoming Encounters Date Type Department Care Team (Late st Contact Info) Description 07/19/2025 7:30 AM EST Appointment [facility] [address] [place] [id number] Quincy Bales MD [address] [address] 08/15/2025 9:00 AM EST Office Visit Adult Medicine [address] [phone] Nicole Kent MD [address] [place] [address] Health Maintenance Due Date Last Done Comments Drug Screen 1986 Non-Opioid Controlled Substance Agreement 1986 Hepatitis B Vaccines (1 of 3 - 19+ 3-dose series) 2005 Pneumococcal Vaccine: Pediatrics (0 to 5 Years) and At-Risk Patients (6 to 49 Years) (2 of 2 - PPSV23, PCV20, or PCV21) 10/30/2016 09/04/2016 Medicare Annual Wellness Visit 06/15/2022 Depression Screening 07/07/2024 08/06/2023 COVID-19 Vaccine (3 - 2024-2 6 season) 2025 12/13/2020, 11/22/2020 Influenza Vaccine (#1) 2025 09/04/2016 Cervical Cancer Screening: HPV 06/06/2025 06/06/2020 Social Influencers of Health Screening 08/10/2025 08/10/2024 DTaP,Tdap,and Td Vaccines (3 - Td or Tdap) 07/19/2026 07/19/2016, 12/29/2008 Cholesterol Screening (Lipid Panel) 08/10/2029 08/10/2024, 08/01/2022 RSV Immunization Adult Patients (1 - 1-dose 75+ series) 2061 HIV Screening Completed 12/20/2004 HPV Vaccines Completed 08/31/2010, 04/30/2010, 02/28/2010 MMR Vaccines Aged Out 08/30/2020, 07/26/2020 No longer eligible based on patient's age to complete this topic Hepatitis C Screening Completed 01/03/2022 HIB Vaccines Aged Out No longer eligi ble based on patient's age to complete this topic Hepatitis A Vaccines Aged Out No long er eligible based on patient's age to complete this topic IPV Vaccines Aged Out No longer eligi ble based on patient's age to complete this topic Meningococcal ACWY Vaccine Aged Out N o longer eligible based on patient's age to complete this topic Meningococcal B Vaccine Aged Out No l onger eligible based on patient's age to complete this topic RSV Immunization Patients Under 20 months Aged Out No longer eligible b ased on patient's age to complete this topic Varicella Vaccines Aged Out No longer eligible based on patient's age to complete this topic Goals Goal Patient Goal Type Associated Problems Recent Progress Patient-Stated? Author Autogenerat ed Goal Care Plan Autogenerated Problem No Leonard Mcclellan Procedures Procedure Name Priority Date/Time Associated Diagnosis Comments LIPID PANEL WITH REFLEX TO DIRECT LDL Routine 08/10/2024 10:08 AM EST Lipid screening DEPRESSION SCREENING Routine 08/06/2023 HEPATITIS C SCREENING Routine 01/03/2022 HPV Routine 06/06/2020 HIV SCREENING Routine 12/20/2004 from Last 3 Months or Most Recently Relevant to Health Maintenance Results * (ABNORMAL) Lipid panel with reflex to direct LDL (08/10/2024 10:08 AM EST) Cholesterol 197 0 - 200 mg/dL LAB CHEMISTRY METHOD 08/10/2024 12:53 PM [facility] Triglycerides 79 0 - 150 mg/dL LAB CHEMISTRY METHOD 08/10/2024 12:53 PM [facility] HDL 54 >=40 mg/dL LAB CHEMISTRY METHOD 08/10/2024 12:53 PM [facility] LDL Calculated 127(H) 0 - 100 mg/dL LAB CHEMISTRY METHOD 08/10/2024 12:53 PM [facility] VLDL Cholesterol Jeramie 15.8 mg/dL LAB CHEMISTRY METHOD 08/10/2024 12:53 PM [facility] Non HDL Chol. (LDL+VLDL) 143 <145 mg/dL LAB CHEMISTRY METHOD 08/10/2024 12:53 PM [facility] Chol/HDL Ratio 3.6 0.0 - 4.4 LAB CHEMISTRY METHOD 08/10/2024 12:53 PM [facility] Blood Venous blood specimen / Unknown Venipuncture / Unknown 08/10/2024 10:08 AM EST 08/10/2024 10:08 AM EST [facility] BLOOD ORDERABLES Final Re sult [facility] [address] [place] [address], [place] [phone] * Depression Screening (08/06/2023) Pathologist [facility] Depression Screening abstracted Historical Provider HEALTH MAINTENANCE Final Result * Hepatitis C Screening (01/03/2022) [facility] Hepatitis C Screening abstracted Historical Provider HEALTH MAINTENANCE Final Result * Cervical Cancer Screening: HPV (06/06/2020) [facility] Cervical Cancer Screening: HPV negative, abstracted Historical Provider HEALTH MAINTENANCE Final Result * HIV Screening (12/20/2004) [facility] HIV Screening abstracted Historical Provider HEALTH MAINTENANCE Final Result from Last 3 Months or Most Recently Relevant to Health Maintenance Additional Health Concerns Active Problems Noted Date Diagnosed Date Autogenerated Problem 05/26/2025 Insurance [facility] MEDIC[facility] Member Subscriber Plan / Payer (Ef fective 2023-Present) Name:JIMBO VICENTE Relation to Subscriber:Self Name:Jimbo Vicente Payer ID:[id number] Group ID:[id number] Type:Not on file Address: [place] [address] [address] [id number] Care Teams Head Buyer Tobacco Relationship Specialty Start Date End Date Nicole Kent MD [address] [place] [phone] PCP - General Internal Medicine 07/16/19
[2025-07-01 13:06] LABS: Lithium 0.22 mmol/L (0.60-1.20)
[2025-07-01 13:17] LABS: Estimated Glomerular Filt Rate > 60
[2025-07-01 13:34] LABS: Thyroid Stimulating Hormone 1.82 uIU/mL (0.32-4.0)
== END 2025-07-01 12:18 | disposition home or self-care (01) ==
LOC: HO.LAB 12:17
PROVIDERS: PCP Internal Medicine; Visit Provider Psychiatry & Neurology Psychiatry
DX: Z51.81 Encounter for therapeutic drug level monitoring (principal); F39 Unspecified mood [affective] disorder
CPT/HCPCS: 36415; 80178; 82565; 84443